=== PATIENT | male | born 2000 | race Caucasian/White ===

== ENCOUNTER 2021-03-29 11:09 | Emergency (ER) | payer OTHER ==
[~2021-03-29] VITALS: Ht 177.8 cm; Wt 77.1 kg
[2021-03-29] MEDS ORDERED: CIPR500T39 PO (13:45)
[2021-03-29 14:03] VITALS: BP 119/58
== END 2021-03-29 14:05 | disposition home or self-care (01) ==
LOC: M ED 11:09
DX: N39.0 Urinary tract infection, site not specified (principal); R31.9 Hematuria, unspecified; Z88.0 Allergy status to penicillin

== ENCOUNTER 2021-06-16 02:13 | Emergency (ER) | payer OTHER ==
[~2021-06-16] VITALS: Ht 177.8 cm; Wt 79.0 kg
[~2021-06-16 02:13] MED LIST: CIPR500T39 PO
[2021-06-16 02:14] VITALS: BP 118/64
== END 2021-06-16 03:16 | disposition left against medical advice (07) ==
LOC: M ED 02:13
DX: Z53.21 Procedure and treatment not carried out due to patient leaving prior to being seen by health care provider (principal)